=== PATIENT | female | born 1960 | race Caucasian/White ===

== ENCOUNTER → 2016-09-07 | Day surgery (SDC) | payer OTHER ==
--- NOTE | 2016-09-05 12:01 | History & Physical Pre-Op ---
General Information and HPI History of Present Illness: Leeanne is a 56-year-old female with a long-standing worsening complaint of a painful bunion left foot. The patient has undergone an extended course of conservative care, including shoe gear and activity modification, rest, immobilization and courses of NSAIDs. None of this is yielded her any significant relief. The patient is in today for preoperative surgical consultation. The patient was referred to our office from Kenan Ruiz DPM. Allergies/Medications Allergies: Coded Allergies: No Known Allergies (09/03/16) Home Med list Albuterol Sulfate (Proair Hfa) 90 MCG HFA.AER.AD 1-2 PUF INH AD PRN RESPIRATORY (Reported) Amlodipine Besylate 5 MG TABLET 1 TAB PO DAILY BP (Reported) Aspirin (Ecotrin*) 81 MG TABLET.DR 1 TAB PO DAILY HEART/BLOOD (Reported) Atorvastatin Calcium (Lipitor) 20 MG TABLET 1 TAB PO DAILY CHOLESTEROL ( Reported) Gabapentin 300 MG CAPSULE 1 CAP PO TID UNKNOWN (Reported) Glipizide 5 MG TABLET 1 TAB PO DAILY DM (Reported) Magnesium Oxide (Magnesium) 400 MG CAPSULE 1 CAP PO DAILY SUPPLEMENT ( Reported) Quetiapine Fumarate (Seroquel) 200 MG TABLET 1 TAB PO AD UNKNOWN (Reported) Sertraline HCl 100 MG TABLET 2 TAB PO AD UNKNOWN (Reported) Past History Medical History Cardiovascular: hypertension, hyperlipidemia Respiratory: COPD Endocrine: diabetes Surgical History Pertinent Surgical History: non-contributory Review of Systems Review of Systems: Review of systems unremarkable except for that noted to present illness Exam & Diagnostic Data Physical Exam: Lungs clear bilaterally. Heart sounds rate and rhythm regular. Lower extremity physical exam demonstrates intact pedal pulses bilaterally. Pulses dorsalis pedis and posterior tibial arteries are palpable bilaterally. Patient without any sensory motor deficits. Deep tendon reflexes grossly intact. Patient noted to have significant pain with palpation and range of motion through the left first metatarsal phalangeal point. The hallux is noted to be tracking and track bound. No excessive first ray excursion noted in sagittal plane. Assessment/Plan Assessment/Plan: Left foot bunion. A lengthy discussion reviewing both surgical and conservative options was held the patient at bedside and the patient elects to go forward with surgery despite the risks. As Ranked By This Provider Problem List: 1. Acquired hallux valgus of left foot Attending MD Review Statement Attending Statement Attending MD Statement: examined this patient
[~2016-09-07] VITALS: Ht 160 cm; Wt 86.2 kg
[~2016-09-07] MED LIST: AMLODIPINE BESYL5 M1 PO; ASPIRIN EC81 M1 PO; GABAPENTIN300 M2 PO; GLIPIZIDE5 M2 PO; LIPITOR20 M2 PO; MAGNESIUM400 M1 PO; PROAIR HFA8.5 GM INH; SEROQUEL200 M1 PO; SERTRALINE HCL100 MG PO
--- NOTE | 2016-09-07 13:44 | Operative Report ---
Operative/Inv Procedure Report Surgery Date: 09/07/16 Name of Procedure: 1 bunionectomy left foot 2 intraoperative nonweightbearing cast application left Pre-Operative Diagnosis: 1 hallux valgus left Post-Operative Diagnosis: The same Estimated Blood Loss: scant Surgeon/Correctional Supervisor Lieutenant: BRITTANY REYNOLDS,ELENA Henry DPM Anesthesia: moderate sedation, block Operative/Procedure Note Note: After obtaining informed consent the patient was brought to the operating room and placed on the operating table in the supine position. The patient isn't securely fastened to the operating table utilizing safety belt. After administration of IV sedation, 10 mL of 0.5% Marcaine plain was infiltrated about the patient's left ankle. A well-padded calf tourniquet was placed about the patient's left lower leg. 2 g of Ancef were delivered intravenously times one dose. Left foot and ankle were scrubbed prepped and draped in usual aseptic manner. Left lower extremity was elevated to examine to limb, at which point the calf tourniquet was inflated to 250 mmHg. Attention directed dorsal medial left foot, where a 6 cm linear incision was made just medial to the course of the extensor hallucis longus tendon. The skin was as a 15 blade and deepened subtenons tissues. The dissection was then carried down to the capture structures where an inverted L capsulotomy was performed exposing the medial eminence. This was removed sagittal bone saw. Attention was then directed first interspace, where a lateral capsulotomy consisting of release of the fibular suspensory ligament and the oblique head of the abductor hallucis tendon was performed. The extensor hallucis brevis tendon was identified and tenotomized. The dissection was then extended proximally by 2 cm to the first met cuneiform joint. The dissection was carried down to the periosteum was incised reflected. A lateral wedge osteotomy was performed to reduce the IM angle this was then reduced and fixated utilizing standard AO fixation techniques. The fixation was noted to be secure enough, so the cortical screws were removed and the osteotomy was planned with a one third neutralization plate. The dissection was then continued distally where a [place] osteotomy was performed and fixated with a 23 cortical screw. Dissection and continued onto the base of proximal phalanx with the dissection continued down to the periosteum which was incised reflected. A medially based wedge osteotomy was performed to reduce the distal articular set angle. This osteotomy was then fixated utilizing standard AO fixation techniques. Nipple was then irrigated with cuff Svensson normal sterile saline. The capture structures reapproximated with 3-0 Vicryl and the subtenons tissues reports a 4-0 Vicryl. The skin edges were then reapproximated with 4-0 Monocryl. Incision was dressed with Steri- Strips Xeroform 4 x 4's Kerlix and Elivn wrap. The Mueller compressive dressing and posterior splint was applied to the left lower extremity. Patient is noted tolerate both procedure and anesthesia well and the patient was transported from the operating room to recovery by sent stable best assess intact all digits left foot.
== END ==
LOC: STS 01:55
DX: M20.12 Hallux valgus (acquired), left foot (principal); I10 Essential (primary) hypertension; E78.5 Hyperlipidemia, unspecified; E11.9 Type 2 diabetes mellitus without complications; J44.9 Chronic obstructive pulmonary disease, unspecified; F17.210 Nicotine dependence, cigarettes, uncomplicated
CPT/HCPCS: 88304; C1713; J0690; J1885; J2001; J2250